=== PATIENT | male | born 2000 | race Caucasian/White ===

== ENCOUNTER 2024-08-22 22:41 | Emergency (ER) | payer BC, OTHER ==
[~2024-08-22] VITALS: Ht 177.8 cm; Wt 86.2 kg
[2024-08-22 23:27] LABS: BASO % 0.3 % (0.0-1.0); EOS # 0.3 10*3/uL (0.0-0.4); HEMATOCRIT 41.1 % (42.0-52.0); MEAN CELL VOLUME 86.5 fl (80.0-94.0); MEAN CORPUSCULAR HGB 29.3 pg (27.0-31.0); MEAN CORPUSCULAR HGB CONC 33.8 g/dl (33.0-37.0); MEAN PLATELET VOLUME 9.5 fl (9.6-12.3); MONO # 0.8 10*3/uL (0.1-1.0); MONO % 9.2 % (3.0-9.0); NEUT # 5.4 10*3/uL (2.3-7.9); NEUT % 60.9 % (47.0-73.0); PLATELET COUNT AUTOMATED 343 10*3/uL (130-400); RED BLOOD COUNT 4.75 10*6/uL (4.50-5.90); RED CELL DISTRI WIDTH 11.9 % (0-14.5); WHITE BLOOD COUNT 8.8 10*3/uL (4.8-10.8)
[2024-08-22 23:45] LABS: BUN 12 mg/dl (9-23); CHLORIDE 103 mmol/L (98-107); POTASSIUM 3.6 mmol/L (3.4-5.1)
[2024-08-23] MEDS ORDERED: ZITHROMAX250 MG PO (00:02)
[2024-08-23] MEDS ORDERED: PREDNISONE20 M1 PO (00:02)
[2024-08-23] MEDS ORDERED: methylPREDNISolone sod succ 125 MG VIAL IM ONE (00:05)
== END 2024-08-23 00:18 | disposition home or self-care (01) ==
LOC: ED 22:41
PROVIDERS: Internal Medicine
DX: B34.9 Viral infection, unspecified (principal); R19.7 Diarrhea, unspecified